=== PATIENT | female | born 1990 | race Hispanic/Latino ===

== ENCOUNTER 2024-12-09 17:21 | Observation (INO) | payer SELFPAY ==
[~2024-12-09] VITALS: Ht 165.1 cm; Wt 83.9 kg
[2024-12-09 17:56] VITALS: TEMP 98.4
[2024-12-09 18:25] LABS: BASOPHILS % 0.2 % (0.0-1.0); EOSINOPHILS # (AUTO) 0.1 (0.0-0.4); EOSINOPHILS % 0.6 % (0.0-6.0); HEMATOCRIT 36.2 % (34.2-44.1); HEMOGLOBIN 11.7 g/dL (12.0-16.0); LYMPHOCYTES # (AUTO) 1.4 (1.0-3.2); LYMPHOCYTES % 17.1 % (18.0-39.1); MEAN CORPUSCULAR HEMOGLOBIN 27.2 pg (28-32); MEAN CORPUSCULAR HGB CONC 32.3 g/dL (31-35); MEAN CORPUSCULAR VOLUME 84.2 fL (81-99); MONOCYTES # (AUTO) 0.5 (0.2-0.8); MONOCYTES % 6.5 % (4.4-11.3); NEUTROPHILS # (AUTO) 6.1 (2.1-6.9); NEUTROPHILS % 75.4 % (38.7-80.0); PLATELET COUNT 388 x10e3/uL (140-360); RED CELL DISTRIBUTION WIDTH 13.4 % (11.7-14.4); WHITE BLOOD COUNT 8.13 x10e3/uL (4.8-10.8)
[2024-12-09] MEDS: SODIUM CHLORIDE 0.9% 1000ML 1,000 ML IV ONE (18:38)
[2024-12-09 18:40] LABS: ALBUMIN 4.1 g/dL (3.5-5.0); ALBUMIN/GLOBULIN RATIO 1.2 (0.8-2.0); ANION GAP 12.4 mmol/L (8-16); BILIRUBIN,TOTAL 0.3 mg/dL (0.2-1.2); CALCIUM 9.5 mg/dL (8.4-10.2); CREATININE, SERUM 0.66 mg/dL (0.57-1.11); TOTAL PROTEIN 7.5 g/dL (6.5-8.1)
[2024-12-09 18:42] LABS: POTASSIUM 3.4 mmol/L (3.5-5.1)
[2024-12-09] MEDS ORDERED: IOPAMIDOL 370 MG/ML 100 ML INFUS..BTL INJ ONE (19:09)
[2024-12-09] MEDS ORDERED: SODIUM CHLORIDE 0.9% 100 ML ONE (19:09)
[2024-12-09 19:44] LABS: INR 1.13; PARTIAL THROMBOPLASTIN TIME 30.9 seconds (23.8-35.5); PROTHROMBIN TIME 15.2 seconds (11.9-14.5)
[2024-12-09] MEDS: SODIUM CHLORIDE 0.9% 1000ML 1,000 ML IV SCH (23:50)
[2024-12-10 00:23] LABS: HEMATOCRIT 31.7 % (34.2-44.1); HEMOGLOBIN 10.3 g/dL (12.0-16.0)
[2024-12-10 06:12] LABS: HEMATOCRIT 32.1 % (34.2-44.1); HEMOGLOBIN 10.3 g/dL (12.0-16.0)
[2024-12-10 10:55] VITALS: PULSE 67; RESP 16
[2024-12-10] MEDS ORDERED: ACETAMINOPHEN 325 MG TAB PO PRN (11:30)
[2024-12-10] MEDS ORDERED: ONDANSETRON HCL INJ 2MG/ML 2ML 2 MG/ML VIAL IV PRN (11:30)
[2024-12-10 11:48] LABS: HEMATOCRIT 32.1 % (34.2-44.1); HEMOGLOBIN 10.4 g/dL (12.0-16.0)
[2024-12-10 12:40] LABS: FERRITIN 14.17 ng/mL (4.63-204.00)
[2024-12-10 14:10] LABS: FOLATE 9.9 ng/mL (7.0-15.4)
[2024-12-10 16:56] VITALS: BP 115/84; PULSE 93; RESP 18; TEMP 98.2; O2SAT 100
[2024-12-10] MEDS ORDERED: CLINDAMYCIN HC300 MG PO (17:35)
[2024-12-10 20:05] VITALS: BP 108/80; PULSE 88; RESP 16; TEMP 98.5; O2SAT 99
[2024-12-10 21:00] VITALS: BP 108/80; PULSE 88; RESP 18; TEMP 98.5; O2SAT 99
[2024-12-10 22:16] VITALS: BP 108/80; PULSE 88; RESP 18; TEMP 98.5; O2SAT 99
[2024-12-10] MEDS: BISACODYL 5 MG TAB EC PO ONE (23:47)
[2024-12-11 00:10] VITALS: BP 102/79; PULSE 84; RESP 20; TEMP 98; O2SAT 99
[2024-12-11] MEDS: BISACODYL 5 MG TAB EC PO ONE (00:23)
[2024-12-11 04:00] VITALS: BP 96/64; PULSE 81; RESP 18; TEMP 97.9; O2SAT 98
[2024-12-11] MEDS: CITRATE OF MAGNESIA 300ML BOTTLE PO ONE ×2 (04:53→06:04)
[2024-12-11 06:34] LABS: BASOPHILS % 0.5 % (0.0-1.0); EOSINOPHILS # (AUTO) 0.1 (0.0-0.4); EOSINOPHILS % 1.9 % (0.0-6.0); HEMATOCRIT 31.5 % (34.2-44.1); LYMPHOCYTES # (AUTO) 1.3 (1.0-3.2); LYMPHOCYTES % 30.1 % (18.0-39.1); MEAN CORPUSCULAR HEMOGLOBIN 27.2 pg (28-32); MEAN CORPUSCULAR HGB CONC 31.7 g/dL (31-35); MEAN CORPUSCULAR VOLUME 85.8 fL (81-99); MONOCYTES # (AUTO) 0.3 (0.2-0.8); MONOCYTES % 8.1 % (4.4-11.3); NEUTROPHILS # (AUTO) 2.5 (2.1-6.9); NEUTROPHILS % 59.2 % (38.7-80.0); PLATELET COUNT 290 x10e3/uL (140-360); RED BLOOD COUNT 3.67 x10e6/uL (3.6-5.1); RED CELL DISTRIBUTION WIDTH 13.2 % (11.7-14.4); WHITE BLOOD COUNT 4.19 x10e3/uL (4.8-10.8)
[2024-12-11 06:48] LABS: ANION GAP 11.4 mmol/L (8-16); CALCIUM 8.7 mg/dL (8.4-10.2); CHOL/HDL RATIO 3.7 (3.0-3.6); CREATININE, SERUM 0.56 mg/dL (0.57-1.11)
[2024-12-11 07:22] LABS: POTASSIUM 3.4 mmol/L (3.5-5.1)
[2024-12-11] MEDS: CYANOCOBALAMIN 1,000 MCG TAB PO SCH (08:28)
[2024-12-11] MEDS: BISACODYL 10 MG SUPP PR ONE (08:31)
[2024-12-11 09:20] VITALS: BP 110/79; PULSE 77; RESP 18; TEMP 98.1; O2SAT 100
[2024-12-11 10:16] VITALS: BP 110/79; PULSE 77; RESP 18; TEMP 98.1; O2SAT 100
[2024-12-11] MEDS ORDERED: VITAMIN B-121000 MCG PO (12:33)
[2024-12-11] MEDS ORDERED: PANTOPRAZOLE SO40 MG PO (12:33)
[2024-12-11] MEDS ORDERED: FEROSUL325 MG PO (12:33)
[2024-12-11 12:36] VITALS: BP 109/70; PULSE 78; RESP 18; TEMP 98.1; O2SAT 99
== END 2024-12-11 13:28 | disposition home or self-care (01) ==
LOC: ER 17:30 → ERHOLD 21:39 → MED/SURG3 12-10 14:40
PROVIDERS: ADMIT Internal Medicine; ATTEND Internal Medicine
DX: K62.5 Hemorrhage of anus and rectum (principal); D50.0 Iron deficiency anemia secondary to blood loss (chronic); E66.09 Other obesity due to excess calories; Z68.30 Body mass index [BMI] 30.0-30.9, adult; K76.0 Fatty (change of) liver, not elsewhere classified; K80.20 Calculus of gallbladder without cholecystitis without obstruction
CPT/HCPCS: 36415 ×3; 74174; 80048; 80053; 80061; 82607; 82728; 82746; 83540; 84466; 84702; 85014 ×2; 85018 ×2; 85025 ×2; 85610; 85730; 86850; 86900; 99284; G0378 ×3; J2470 ×3; J7030 ×3; J7050; Q9967